=== PATIENT | male | born 1970 | race Caucasian/White ===

== ENCOUNTER 2019-10-03 15:14 | Emergency (ER) | payer MEDICAID ==
[~2019-10-03] VITALS: Ht 170.2 cm; Wt 69.0 kg
[2019-10-03 15:29] VITALS: BP 153/91
[2019-10-03] MEDS ORDERED: MUPI22OI30 TOP (16:29)
== END 2019-10-03 16:44 | disposition home or self-care (01) ==
LOC: ER 15:15
DX: L02.416 Cutaneous abscess of left lower limb (principal); Z79.899 Other long term (current) drug therapy
CPT/HCPCS: 99283

== ENCOUNTER 2019-10-08 20:42 | Emergency (ER) | payer MEDICAID ==
[~2019-10-08] VITALS: Ht 172.7 cm; Wt 73.1 kg
[~2019-10-08 20:42] MED LIST: MUPI22OI30 TOP
[2019-10-08 20:57] VITALS: BP 126/82
[2019-10-09] MEDS ORDERED: SULF1TAB49 PO (11:35)
== END 2019-10-09 00:59 | disposition left against medical advice (07) ==
LOC: ER 20:43
DX: L02.419 Cutaneous abscess of limb, unspecified (principal); Z53.21 Procedure and treatment not carried out due to patient leaving prior to being seen by health care provider

== ENCOUNTER 2019-10-09 11:00 | Emergency (ER) | payer MEDICAID ==
[~2019-10-09] VITALS: Ht 172.7 cm; Wt 72.0 kg
[2019-10-09 11:06] VITALS: BP 137/89
[2019-10-09] MEDS ORDERED: TETanus/Pertussis (Acell)/Diphther VAC/PF (Tdap-Adult) 0.5ml syringe IMVAC ONE (11:10)
[2019-10-09] MEDS ORDERED: LIDOcaine 1% w/epiNEPHrine 1:200,000 30ml vial IJ ONE (11:10)
[2019-10-09] MEDS ORDERED: LIDOcaine 1.5% w/epinephrine 1:200,000 5ml ampul IJ ONE (11:10)
[2019-10-09] MEDS ORDERED: SULF1TAB49 PO (11:35)
== END 2019-10-09 11:46 | disposition home or self-care (01) ==
LOC: ER 11:01
DX: L02.416 Cutaneous abscess of left lower limb (principal); Z79.899 Other long term (current) drug therapy
CPT/HCPCS: 10060; 90715; 99283

== ENCOUNTER 2019-12-23 05:46 | Emergency (ER) | payer MEDICAID ==
[~2019-12-23] VITALS: Ht 172.7 cm; Wt 73.8 kg
[2019-12-23] MEDS ORDERED: ACET-3068 PO (06:29)
[2019-12-23 06:49] VITALS: BP 136/81
== END 2019-12-23 06:50 | disposition home or self-care (01) ==
LOC: ER 05:46
DX: K40.90 Unilateral inguinal hernia, without obstruction or gangrene, not specified as recurrent (principal); R05 Cough; R06.7 Sneezing; F17.200 Nicotine dependence, unspecified, uncomplicated; F12.90 Cannabis use, unspecified, uncomplicated; Z79.899 Other long term (current) drug therapy
CPT/HCPCS: 99283

== ENCOUNTER 2020-04-20 11:40 | Emergency (ER) | payer MEDICAID ==
[~2020-04-20] VITALS: Ht 170.2 cm; Wt 74.4 kg
[2020-04-20 12:32] LABS: BASOPHILS % (AUTO) 0.5 % (0-1); EOSINOPHILS # (AUTO) 0.1 X10'3 (0-0.9); EOSINOPHILS % (AUTO) 1.1 % (0-6); HEMATOCRIT 50.8 % (42.0-52.0); HEMOGLOBIN 17.2 g/dl (14.0-17.9); LYMPHOCYTES # (AUTO) 1.6 X10'3 (1.1-4.8); LYMPHOCYTES % (AUTO) 21.4 % (21-51); MEAN CORPUSCULAR HEMOGLOBIN 31.3 PG (27.0-31.0); MEAN CORPUSCULAR VOLUME 92.2 FL (78-98); MEAN PLATELET VOLUME 7.2 FL (7.4-10.4); MONOCYTES # (AUTO) 0.6 X10'3 (0-0.9); MONOCYTES % (AUTO) 7.9 % (2-12); NEUTROPHILS # (AUTO) 5.1 X10'3 (1.8-7.7); NEUTROPHILS % (AUTO) 69.1 % (42-75); PLATELET COUNT 270 X10'3 (140-440); RED BLOOD COUNT 5.51 X10'6 (4.70-6.10); RED CELL DISTRIBUTION WIDTH 13.1 % (11.5-14.5); WHITE BLOOD COUNT 7.3 X10'3 (4.5-11.0)
[2020-04-20] MEDS ORDERED: ondansetron/PF 4mg/2ml inj IV ONE (12:35)
[2020-04-20] MEDS ORDERED: HYDROmorphone 1 mg/ml syringe IV ONE (12:35)
[2020-04-20 12:49] LABS: ALANINE AMINOTRANSFERASE 34 U/L (12-78); ALBUMIN 4.1 G/DL (3.4-5.0); ALBUMIN/GLOBULIN RATIO 1.1 (1.1-1.5); ALKALINE PHOSPHATASE 73 IU/L (46-116); ANION GAP 6 (8-16); ASPARTATE AMINO TRANSFERASE 17 U/L (10-37); BILIRUBIN,TOTAL 0.5 MG/DL (0.1-1.0); BLOOD UREA NITROGEN 15 MG/DL (7-18); BUN/CREATININE RATIO 19.2 (5.4-32.0); CALCIUM 9.3 MG/DL (8.5-10.1); CHLORIDE 101 MMOL/L (99-107); CREATININE 0.78 MG/DL (0.60-1.10); GLUCOSE 118 MG/DL (70-104); LIPASE 79 U/L (73-393); POTASSIUM 4.4 MMOL/L (3.5-5.1); SODIUM 138 MMOL/L (135-145); TOTAL PROTEIN 7.9 G/DL (6.4-8.2); eGFR > 90 ML/MIN
[2020-04-20] MEDS ORDERED: iohexol 300mg/ml 100ml inj. ONE (12:55)
[2020-04-20] MEDS ORDERED: NAPR-56 PO (14:08)
[2020-04-20] MEDS ORDERED: HYDR-3965 PO (14:08)
[2020-04-20 14:29] VITALS: BP 139/92
== END 2020-04-20 14:41 | disposition home or self-care (01) ==
LOC: ER 11:40
DX: K40.91 Unilateral inguinal hernia, without obstruction or gangrene, recurrent (principal); F12.90 Cannabis use, unspecified, uncomplicated; Z79.899 Other long term (current) drug therapy
CPT/HCPCS: 36415; 74177; 80053; 83605; 83690; 85025; 96365; 96375; 99285; J1170; J2405; Q9967

== ENCOUNTER 2020-04-20 20:33 | Emergency (ER) | payer MEDICAID ==
[~2020-04-20] VITALS: Ht 170.2 cm; Wt 74.5 kg
[~2020-04-20 20:33] MED LIST changes: +HYDR-3965 PO; -MUPI22OI30 TOP; +NAPR-56 PO
[2020-04-20 20:47] VITALS: BP 149/94
--- NOTE | 2020-04-20 21:14 | NUR ---
Patient lying in bed. Patient reports coming to ED tonight due to hernia. patient reports he was here earlier today and sent home. patient denies any new compliants since discharge.
[2020-04-20] MEDS ORDERED: acetaminophen 325mg tablet PO ONE (22:50)
[2020-04-20] MEDS ORDERED: ketorolac tromethamine 15mg/ml inj. IM ONE (22:50)
[2020-04-20] MEDS ORDERED: mag hydrox/Alum hydrox/simeth 30ml oral suspension PO ONE (22:55)
[2020-04-20] MEDS ORDERED: dicyclomine 10 MG capsule PO ONE (22:55)
== END 2020-04-20 23:14 | disposition home or self-care (01) ==
LOC: ER 20:34
DX: R10.32 Left lower quadrant pain (principal); K40.90 Unilateral inguinal hernia, without obstruction or gangrene, not specified as recurrent; F12.90 Cannabis use, unspecified, uncomplicated; Z79.899 Other long term (current) drug therapy
CPT/HCPCS: 99284

== ENCOUNTER 2020-12-04 19:24 | Emergency (ER) | payer MEDICAID ==
[~2020-12-04] VITALS: Ht 170.2 cm; Wt 80.0 kg
[2020-12-04] MEDS ORDERED: aspirin 81mg tab.chew PO ONE (19:30)
[2020-12-04 19:45] LABS: BASOPHILS % (AUTO) 0.2 % (0-1); EOSINOPHILS % (AUTO) 0.4 % (0-6); HEMOGLOBIN 15.8 g/dl (14.0-17.9); LYMPHOCYTES # (AUTO) 1.2 X10'3 (1.1-4.8); LYMPHOCYTES % (AUTO) 15.1 % (21-51); MEAN CORPUSCULAR HEMOGLOBIN 31.8 PG (27.0-31.0); MEAN CORPUSCULAR HGB CONC 34.3 g/dL (33.0-36.5); MEAN CORPUSCULAR VOLUME 92.5 FL (78-98); MEAN PLATELET VOLUME 6.9 FL (7.4-10.4); MONOCYTES # (AUTO) 1.3 X10'3 (0-0.9); MONOCYTES % (AUTO) 16.8 % (2-12); NEUTROPHILS # (AUTO) 5.2 X10'3 (1.8-7.7); NEUTROPHILS % (AUTO) 67.5 % (42-75); PLATELET COUNT 258 X10'3 (140-440); RED BLOOD COUNT 4.98 X10'6 (4.70-6.10); RED CELL DISTRIBUTION WIDTH 12.7 % (11.5-14.5); WHITE BLOOD COUNT 7.8 X10'3 (4.5-11.0)
--- NOTE | 2020-12-04 19:46 | NUR ---
PT REPORTS TAKING 3 SONI [address]IRIN TODAY FOR PAIN
[2020-12-04 19:54] LABS: ALANINE AMINOTRANSFERASE 33 U/L (12-78); ALBUMIN 3.7 G/DL (3.4-5.0); ALKALINE PHOSPHATASE 77 IU/L (46-116); ANION GAP 7 (8-16); ASPARTATE AMINO TRANSFERASE 46 U/L (10-37); BILIRUBIN,TOTAL 0.3 MG/DL (0.1-1.0); BLOOD UREA NITROGEN 14 MG/DL (7-18); BUN/CREATININE RATIO 15.2 (5.4-32.0); CALCIUM 8.7 MG/DL (8.5-10.1); CHLORIDE 101 MMOL/L (99-107); CREATININE 0.92 MG/DL (0.60-1.10); GLUCOSE 126 MG/DL (70-104); SODIUM 137 MMOL/L (135-145); TOTAL CARBON DIOXIDE 28.9 MMOL/L (24-32); TOTAL PROTEIN 7.3 G/DL (6.4-8.2); eGFR > 90 ML/MIN
[2020-12-04 20:03] LABS: TROPONIN I < 0.04 NG/ML (0.0-0.05)
[2020-12-04] MEDS ORDERED: ibuprofen 200mg tablet PO ONE (22:45)
[2020-12-04] MEDS ORDERED: sulfamethoxazole/trimethoprim DS (800/160mg) tablet PO ONE (22:45)
[2020-12-04] MEDS ORDERED: acetaminophen 325mg tablet PO ONE (22:45)
[2020-12-04] MEDS ORDERED: ondansetron 4mg rapidly disintigrating tab PO ONE (22:45)
[2020-12-04] MEDS ORDERED: HYDR-3965 PO (22:47)
[2020-12-04 23:18] VITALS: BP 127/79
== END 2020-12-04 23:20 | disposition home or self-care (01) ==
LOC: ER 19:24
DX: R59.1 Generalized enlarged lymph nodes (principal); F17.210 Nicotine dependence, cigarettes, uncomplicated
CPT/HCPCS: 36415; 71045; 80053; 83735; 83880; 84484; 85025; 93005; 99285